=== PATIENT | female | born 1965 | race Two or more races ===

== ENCOUNTER 2019-06-11 09:43 | Outpatient (CLI) | payer MEDICAID ==
[~2019-06-11 09:43] MED LIST: DIPHENHYDRAMINE25 M1 ORAL; IBUPROFEN600 MG ORAL; MECLIZINE HCL25 MG ORAL; MONTELUKAST SOD10 MG ORAL; MULTIVITAMINS1 EAC2 ORAL; OYSTER SHELL C500 MG PO; PROAIR HFA8.5 GM INH; VITAMIN C500 M1 ORAL
[2019-06-11 09:45] VITALS: BP 133/76
--- NOTE | 2019-06-11 09:57 | General Progress Note ---
Assessment/Plan Assessment/Plan: colon polyp x2>>> repeat colon in 5 years c/o odynophagia>>> ppi>> RTC 2 months>> EGD if not better Subjective ROS Limited/Unobtainable: Yes Allergies: Coded Allergies: No Known Allergies (Unverified , 03/19/19) Objective General Appearance: alert EENT: normal ENT inspection Neck: supple Cardiovascular: normal rate Respiratory/Chest: lungs clear Abdomen: normal bowel sounds, non tender, soft Extremities: non-tender Rudi Alvarado MD Jun 11, 2019 09:57
== END 2019-06-11 12:51 | disposition home or self-care (01) ==
LOC: PAN 09:43
DX: K63.5 Polyp of colon (principal); R13.10 Dysphagia, unspecified
CPT/HCPCS: 99212

== ENCOUNTER 2019-08-13 09:35 | Outpatient (CLI) | payer MEDICAID, BC ==
--- NOTE | 2019-08-13 09:48 | General Progress Note ---
Assessment/Plan Assessment/Plan: Assessment/Plan Assessment/Plan: colon polyp x2>>> repeat colon in 5 years c/o odynophagia>>> ppi>> RTC 2 months>> EGD if not better Subjective ROS Limited/Unobtainable: Yes Allergies: Coded Allergies: No Known Allergies (Unverified , 03/19/19) Subjective ROS Limited/Unobtainable: Yes Allergies: Coded Allergies: No Known Allergies (Unverified , 03/19/19) Objective General Appearance: alert EENT: normal ENT inspection Neck: supple Cardiovascular: normal rate Respiratory/Chest: decreased breath sounds Abdomen: normal bowel sounds, non tender, soft Extremities: non-tender Rudi Alvarado MD Aug 13, 2019 09:48
== END 2019-08-13 14:29 | disposition home or self-care (01) ==
LOC: PAN 09:35
DX: K63.5 Polyp of colon (principal); R13.10 Dysphagia, unspecified
CPT/HCPCS: 99212

== ENCOUNTER 2019-11-19 09:48 | Outpatient (CLI) | payer MEDICAID ==
--- NOTE | 2019-11-19 10:06 | General Progress Note ---
Assessment/Plan Assessment/Plan: Assessment/Plan Assessment/Plan: colon polyp x2>>> repeat colon in 5 years c/o odynophagia>>> ppi, change to protonix>> RTC 2 months>> EGD if not better Subjective ROS Limited/Unobtainable: Yes Allergies: Coded Allergies: No Known Allergies (Unverified , 03/19/19) Objective General Appearance: alert EENT: PERRL/EOMI Neck: supple Cardiovascular: normal rate Respiratory/Chest: decreased breath sounds Abdomen: normal bowel sounds, non tender, soft Extremities: non-tender Rudi Alvarado MD Nov 19, 2019 10:05
[2019-11-19 14:25] VITALS: BP 115/61
== END 2019-11-19 11:48 | disposition home or self-care (01) ==
LOC: PAN 09:48
DX: K63.5 Polyp of colon (principal)

== ENCOUNTER 2020-02-19 14:17 | Outpatient (CLI) | payer MEDICAID ==
[2020-02-19] MEDS ORDERED: PROTONIX40 MG ORAL (14:27)
[2020-02-19 14:28] VITALS: BP 115/65
--- NOTE | 2020-02-19 14:41 | General Progress Note ---
Subjective ROS Limited/Unobtainable: Yes Allergies: Coded Allergies: No Known Allergies (Unverified , 03/19/19) Objective Last 24 Hour Vital Signs Date Time Temp Pulse Resp B/P (MAP) Pulse Ox O2 Delivery O2 Flow Rate FiO2 02/19/20 14:28 97.9 82 16 115/65 98 General Appearance: alert EENT: PERRL/EOMI Neck: supple Cardiovascular: normal rate Respiratory/Chest: lungs clear Abdomen: normal bowel sounds, non tender, soft Extremities: non-tender Assessment/Plan Assessment/Plan: Assessment/Plan Assessment/Plan: colon polyp x2>>> repeat colon in 5 years c/o odynophagia>>> ppi, plan EGD given no response to ppi add align Rudi Alvarado MD Feb 19, 2020 14:41
== END 2020-02-19 16:17 | disposition home or self-care (01) ==
LOC: PAN 14:17
DX: K63.5 Polyp of colon (principal); R13.10 Dysphagia, unspecified
CPT/HCPCS: 99212

== ENCOUNTER 2020-04-22 14:40 | Outpatient (CLI) | payer MEDICAID ==
[2020-04-22 14:40] VITALS: BP 122/78
[~2020-04-22 14:40] MED LIST changes: +PROTONIX40 MG ORAL
--- NOTE | 2020-04-25 11:32 | General Progress Note ---
Subjective ROS Limited/Unobtainable: Yes Allergies: Coded Allergies: No Known Allergies (Unverified , 03/19/19) Objective General Appearance: alert EENT: normal ENT inspection Neck: supple Cardiovascular: normal rate Respiratory/Chest: decreased breath sounds Abdomen: normal bowel sounds, non tender, soft Extremities: non-tender Assessment/Plan Assessment/Plan: s/p recent colonoscopy diverticulitis recent plan EGD next month Rudi Alvarado MD Apr 25, 2020 11:32
== END 2020-04-22 16:40 | disposition home or self-care (01) ==
LOC: PAN 14:40
DX: K57.92 Diverticulitis of intestine, part unspecified, without perforation or abscess without bleeding (principal)
CPT/HCPCS: 99212

== ENCOUNTER 2020-05-18 13:01 | Outpatient (CLI) | payer MEDICAID ==
[2020-05-18 13:22] VITALS: BP 142/80
[2020-05-18] MEDS ORDERED: OMEPRAZOLE40 M1 ORAL (13:25)
--- NOTE | 2020-05-18 14:11 | General Progress Note ---
Subjective ROS Limited/Unobtainable: Yes Allergies: Coded Allergies: No Known Allergies (Unverified , 03/19/19) Objective Last 24 Hour Vital Signs Date Time Temp Pulse Resp B/P (MAP) Pulse Ox O2 Delivery O2 Flow Rate FiO2 05/18/20 13:22 97.3 66 16 142/80 94 General Appearance: alert EENT: PERRL/EOMI Neck: normal alignment, supple Cardiovascular: normal rate Respiratory/Chest: lungs clear Abdomen: hypoactive bowel sounds, tender Extremities: non-tender Assessment/Plan Assessment/Plan: s/p recent EGD and colonoscopy ? acute diverticulitis Augmentin for 10 days RTC if no improvement Rudi Alvarado MD May 18, 2020 14:11
== END 2020-05-18 15:01 | disposition home or self-care (01) ==
LOC: PAN 13:01
DX: Z00.00 Encounter for general adult medical examination without abnormal findings (principal)
CPT/HCPCS: 99212